=== PATIENT | male | born 1990 | race Hispanic/Latino ===

== ENCOUNTER 2019-03-19 10:22 | Emergency (ER) | payer SELFPAY ==
--- NOTE | 2019-03-19 10:38 | RAD ---
EXAM: Left knee: 4 views INDICATIONS: Injury COMPARISON: None. FINDINGS: Joint spaces appear normal. No fracture or osseous abnormality. Joint effusion is noted in the suprapatellar region. IMPRESSION: Evidence of joint effusion. No acute osseous abnormality.
--- NOTE | 2019-03-19 12:02 | CT ---
EXAM: CT scan left knee without contrast: INDICATIONS: Injury COMPARISON: None. FINDINGS: Moderate size joint effusion is noted. No fracture or acute osseous abnormality. Cruciate l igaments appear intact. Visualized collateral ligaments and meniscal cartilages appear unremarkable by CT. IMPRESSION: Moderate size joint effusion. No acute osseous abnormality.
== END 2019-03-19 12:47 | disposition home or self-care (01) ==
LOC: ERS 10:22
DX: M25.462 Effusion, left knee (principal)

== ENCOUNTER 2022-10-04 20:01 | Inpatient (IN) | payer BC, SELFPAY ==
[2022-10-04 21:28] LABS: Hemoglobin 11.4 g/dL (14.0-18.0); Mean Corpuscular Hemoglobin 34.6 pg (27.0-31.0); Mean Platelet Volume 8.7 fL (7.4-10.4); Platelet Count 135 10x3/uL (130-400); RBC Distribution Width 14.3 % (11.5-14.5); Red Blood Cell (RBC) Count 3.29 mill/uL (4.70-6.10); White Blood Cell (WBC) Count 7.8 10x3/uL (4.8-10.8)
[2022-10-04 21:33] LABS: ALT (SGPT) 14 U/L (8-55); AST (SGOT) 16 U/L (5-34); Albumin 3.8 g/dL (3.5-5.0); Alkaline Phosphatase 79 U/L (40-110); Anion Gap 21 mmol/L (10-20); BUN (Urea Nitrogen) 63 mg/dL (8.9-20.6); Bilirubin, Total 0.9 mg/dL (0.2-1.2); Calc. Creatinine Clearance 0 mL/min (70-130); Calcium 8.5 mg/dL (7.8-10.44); Carbon Dioxide 23 mmol/L (22-29); Chloride 103 mmol/L (98-107); Estimated GFR 4; Globulin 2.7 g/dL (2.4-3.5); Glucose 114 mg/dL (70-105); Potassium 5.3 mmol/L (3.5-5.1); Protein, Total 6.5 g/dL (6.0-8.3); Sodium 142 mmol/L (136-145)
[2022-10-04 21:59] LABS: #Eosinphils 0.4 thou/uL (0.0-0.7); #Lymphocytes 1.5 thou/uL (1.20-3.40); #Monocytes 0.5 thou/uL (0.11-0.59); #Neutrophils 5.4 thou/uL (1.40-6.50); %Basophils 0.6 % (0.0-1.0); %Eosinophils 4.7 % (0.0-10.0); %Lymphocytes 19.5 % (21.0-51.0); %Monocytes 5.9 % (0.0-10.0); %Neutrophils 69.4 % (42.0-75.0); CKMB 2.1 ng/mL (0-6.6); MDiff Complete? YES; Macrocytosis SLIGHT = 6-15 cells (100X) (0-5/hpf)
[2022-10-04] MEDS ORDERED: Ondansetron PF 4 MG/2 ML Vial IVP PRN (23:05)
[2022-10-04] MEDS ORDERED: cefTRIAXone\\ROCEPHIN 1 GM in Sodium Chloride 0.9% 100 ML IVPB SCH (23:15)
[2022-10-04] MEDS ORDERED: Azithromycin 500 MG in Sodium Chloride 0.9% 250 ML 250 ML IVPB SCH (23:59)
[2022-10-05] MEDS ORDERED: cefTRIAXone\\ROCEPHIN 1 GM VIAL ONE (00:03)
[2022-10-05 00:21] LABS: SARS-CoV-2 NAA Rapid Test Not Detected (NotDetected)
[2022-10-05] MEDS ORDERED: Azithromycin 500 MG VIAL ONE (00:30)
[2022-10-05 02:12] LABS: #Basophils 0.1 thou/uL (0.0-0.2); #Eosinphils 0.3 thou/uL (0.0-0.7); #Lymphocytes 1.6 thou/uL (1.20-3.40); #Monocytes 0.5 thou/uL (0.11-0.59); #Neutrophils 5.6 thou/uL (1.40-6.50); %Basophils 0.7 % (0.0-1.0); %Lymphocytes 19.4 % (21.0-51.0); %Monocytes 6.3 % (0.0-10.0); %Neutrophils 69.6 % (42.0-75.0); Mean Corpuscular Hemoglobin 34.9 pg (27.0-31.0); Mean Platelet Volume 9.2 fL (7.4-10.4); Platelet Count 139 10x3/uL (130-400); RBC Distribution Width 14.3 % (11.5-14.5); Red Blood Cell (RBC) Count 3.15 mill/uL (4.70-6.10)
[2022-10-05] MEDS ORDERED: Benzonatate 100 MG CAP PO PRN (02:14)
[2022-10-05] MEDS ORDERED: Benzonatate 100 MG CAP ONE ×3 (02:16→02:18)
[2022-10-05 02:36] LABS: Anion Gap 22 mmol/L (10-20); BUN (Urea Nitrogen) 66 mg/dL (8.9-20.6); Calc. Creatinine Clearance 7 mL/min (70-130); Calcium 8.3 mg/dL (7.8-10.44); Carbon Dioxide 21 mmol/L (22-29); Chloride 104 mmol/L (98-107); Estimated GFR 4; Glucose 94 mg/dL (70-105); Sodium 142 mmol/L (136-145)
[2022-10-05 02:56] LABS: HBSAg Index 0.21 S/CO (0-0.99); Hep B Surf Ag Non-Reactive S/CO (NonReactive)
[2022-10-05 03:41] LABS: HBSAB Concentration 2043.45 mIU/mL; Hep B Surf AB Reactive (NonReactive)
[2022-10-05] MEDS ORDERED: Amlodipine 10 MG TAB PO SCH (09:00)
[2022-10-05] MEDS: NIFEdipine XL 60 MG TAB PO SCH (09:15)
[2022-10-05 09:36] LABS: Troponin I 0.028 ng/mL (< 0.028)
[2022-10-05] MEDS: Acetaminophen 325 MG TAB PO PRN ×2 (11:05→19:11)
[2022-10-05] MEDS ORDERED: Acetaminophen 325 MG TAB ONE (11:07)
[2022-10-06 04:15] LABS: #Eosinphils 0.2 thou/uL (0.0-0.7); #Lymphocytes 1.4 thou/uL (1.20-3.40); #Monocytes 0.5 thou/uL (0.11-0.59); #Neutrophils 4.1 thou/uL (1.40-6.50); %Basophils 0.6 % (0.0-1.0); %Eosinophils 3.6 % (0.0-10.0); %Lymphocytes 22.4 % (21.0-51.0); %Monocytes 8.3 % (0.0-10.0); %Neutrophils 65.2 % (42.0-75.0); Hemoglobin 11.2 g/dL (14.0-18.0); Mean Corpuscular HGB CONC 31.4 g/dL (32.0-36.0); Mean Corpuscular Hemoglobin 33.2 pg (27.0-31.0); Mean Platelet Volume 8.4 fL (7.4-10.4); Platelet Count 151 10x3/uL (130-400); RBC Distribution Width 14.3 % (11.5-14.5); Red Blood Cell (RBC) Count 3.37 mill/uL (4.70-6.10); White Blood Cell (WBC) Count 6.3 10x3/uL (4.8-10.8)
[2022-10-06 04:46] LABS: Anion Gap 16 mmol/L (10-20); BUN (Urea Nitrogen) 46 mg/dL (8.9-20.6); Calc. Creatinine Clearance 8 mL/min (70-130); Calcium 8.3 mg/dL (7.8-10.44); Carbon Dioxide 28 mmol/L (22-29); Chloride 101 mmol/L (98-107); Estimated GFR 5; Glucose 80 mg/dL (70-105); Potassium 4.9 mmol/L (3.5-5.1); Sodium 140 mmol/L (136-145)
[2022-10-06 05:41] VITALS: BMI 22.3
[2022-10-06] MEDS: Heparin 5,000 UNITS/ML VIAL SC SCH ×2 (08:22→20:52)
[2022-10-06] MEDS: NIFEdipine XL 60 MG TAB PO SCH (08:23)
[2022-10-06] MEDS ORDERED: Losartan 25 MG TAB PO SCH (13:30)
[2022-10-07 05:08] LABS: #Basophils 0.1 thou/uL (0.0-0.2); #Eosinphils 0.2 thou/uL (0.0-0.7); #Lymphocytes 1.4 thou/uL (1.20-3.40); #Monocytes 0.4 thou/uL (0.11-0.59); #Neutrophils 2.9 thou/uL (1.40-6.50); %Basophils 1.2 % (0.0-1.0); %Eosinophils 4.7 % (0.0-10.0); %Lymphocytes 27.7 % (21.0-51.0); %Monocytes 8.9 % (0.0-10.0); %Neutrophils 57.5 % (42.0-75.0); Hemoglobin 12.8 g/dL (14.0-18.0); Mean Corpuscular HGB CONC 31.6 g/dL (32.0-36.0); Mean Corpuscular Hemoglobin 33.3 pg (27.0-31.0); Mean Platelet Volume 8.7 fL (7.4-10.4); Platelet Count 164 10x3/uL (130-400); RBC Distribution Width 14.4 % (11.5-14.5); Red Blood Cell (RBC) Count 3.83 mill/uL (4.70-6.10)
[2022-10-07 05:28] LABS: Anion Gap 19 mmol/L (10-20); BUN (Urea Nitrogen) 33 mg/dL (8.9-20.6); Calc. Creatinine Clearance 10 mL/min (70-130); Calcium 8.5 mg/dL (7.8-10.44); Carbon Dioxide 28 mmol/L (22-29); Chloride 97 mmol/L (98-107); Estimated GFR 7; Glucose 83 mg/dL (70-105); Potassium 5.1 mmol/L (3.5-5.1); Sodium 139 mmol/L (136-145)
[2022-10-07] MEDS: Heparin 5,000 UNITS/ML VIAL SC SCH ×2 (09:02→21:01)
[2022-10-07] MEDS: NIFEdipine XL 60 MG TAB PO SCH (09:03)
[2022-10-07] MEDS: Losartan 25 MG TAB PO SCH (09:03)
[2022-10-07] MEDS ORDERED: Folic Acid/Vit B Comp W-C PO SCH (21:00)
[2022-10-08] MEDS: NIFEdipine XL 60 MG TAB PO SCH (10:43)
[2022-10-08] MEDS: Losartan 25 MG TAB PO SCH (10:44)
[2022-10-08 15:41] VITALS: BP 154/93; TEMP 98
== END 2022-10-08 16:30 | disposition home or self-care (01) | DRG 280 ==
LOC: ERS 20:01 → ERHOLD 23:07 → 2NO 10-05 17:25
PROVIDERS: ADMIT Internal Medicine; ATTEND Internal Medicine
PROC: 5A1D70Z Performance of Urinary Filtration, Intermittent, Less than 6 Hours Per Day (ICD-10-PCS; principal; 2022-10-04)
DX: I13.2 Hypertensive heart and chronic kidney disease with heart failure and with stage 5 chronic kidney disease, or end stage renal disease (principal); I50.33 Acute on chronic diastolic (congestive) heart failure; I21.A1 Myocardial infarction type 2; J96.01 Acute respiratory failure with hypoxia; Z20.822 Contact with and (suspected) exposure to COVID-19; D63.1 Anemia in chronic kidney disease; I25.10 Atherosclerotic heart disease of native coronary artery without angina pectoris; I16.0 Hypertensive urgency; Z99.2 Dependence on renal dialysis; Z87.891 Personal history of nicotine dependence; Z91.199 Patient's noncompliance with other medical treatment and regimen due to unspecified reason; Z79.899 Other long term (current) drug therapy
CPT/HCPCS: 36415; 71046; 78452; 80048; 80053; 82553; 83880; 84484; 85025; 86706; 87340; 90935; 93005; 93017; 93306; A9500; G0257; J0456; J0696; J1644; J1650; J3490; J7050